=== PATIENT | female | born 1995 | race Caucasian/White ===

== ENCOUNTER 2017-06-19 08:49 | Emergency (ER) | payer BC, OTHER ==
[~2017-06-19] VITALS: Ht 165.1 cm; Wt 68.0 kg
[~2017-06-19 08:49] MED LIST: CEPH-460 PO; CEPH500C3 PO; DIFL150T PO; PYRI200T4 PO; Z.0.BCPILL PO
[2017-06-19 08:53] VITALS: BP 143/83; PULSE 76; RESP 19; TEMP 98.8; O2SAT 98
[2017-06-19] MEDS ORDERED: ONDANSETRON HCL 4 MG/2 ML VIAL IV PUSH ONE ×2 (09:30→10:30)
[2017-06-19 10:03] LABS: AUTOMATED NEUTROPHIL # 6.4 TH/MM3 (1.8-7.7); BASOPHIL # 0.1 TH/MM3 (0-0.2); BASOPHIL % 0.6 % (0.0-2.0); EOSINOPHIL # 0.3 TH/MM3 (0-0.4); EOSINOPHIL % 3.3 % (0.0-4.0); HEMATOCRIT 38.6 % (35.0-46.0); HEMOGLOBIN 13.1 GM/DL (11.6-15.3); LYMPH % 29.3 % (9.0-44.0); MEAN CELL VOLUME 81.4 FL (80.0-100.0); MEAN CORPUSCULAR HEMOGLOBIN 27.5 PG (27.0-34.0); MEAN CORPUSCULAR HGB CONC 33.8 % (32.0-36.0); MEAN PLATELET VOLUME 7.6 FL (7.0-11.0); MONO % 4.6 % (0.0-8.0); MONOCYTE # 0.5 TH/MM3 (0-0.9); NEUT % 62.2 % (16.0-70.0); PLATELET COUNT 291 TH/MM3 (150-450); RED BLOOD COUNT 4.74 MIL/MM3 (4.00-5.30); RED CELL DISTRIBUTION WIDTH 14.2 % (11.6-17.2); WHITE BLOOD COUNT 10.3 TH/MM3 (4.0-11.0)
[2017-06-19 10:13] LABS: BACTERIA, URINE RARE /hpf; BILIRUBIN, URINE NEG (NEG); BLOOD, URINE LARGE (NEG); GLUCOSE,URINE NEG (NEG); KETONE, URINE NEG (NEG); MUCUS URINE FEW /lpf (OCC); NITRITE,URINE NEG (NEG); PH, URINE 5.5 (5.0-8.5); SQUAMOUS EPITHELIAL CELL URINE 1 /hpf (0-5); URINE COLOR YELLOW (YELLW/STRAW); URINE LEUKOCYTE ESTERASE NEG (NEG)
[2017-06-19 10:24] LABS: BICARBONATE 23.2 MEQ/L (21.0-32.0); CALCIUM 8.8 MG/DL (8.5-10.1); CREATININE 0.85 MG/DL (0.50-1.00)
[2017-06-19] MEDS ORDERED: SODIUM CHLOR 0.9% 1000 ML INJ 1,000 ML IV ONE (10:30)
[2017-06-19] MEDS ORDERED: MORPHINE SULFATE 4 MG/ML INJ IV PUSH ONE (10:30)
--- NOTE | 2017-06-19 10:54 | RADRPT ---
EXAM DATE/TIME: 06/19/2017 10:39 [place] COMPARISON: No previous studies available for comparison. INDICATIONS : Right flank pain, vomiting ORAL CONTRAST: No oral contrast ingested. RADIATION DOSE: 5.80 CTDIvol (mGy) MEDICAL HISTORY : Asthma SURGICAL HISTORY : None. ENCOUNTER: Initial ACUITY: 1 day PAIN SCALE: 4/10 LOCATION: Right flank TECHNIQUE: Volumetric scanning of the abdomen and pelvis was performed. Using automated exposure control and ad justment of the mA and/or kV according to patient size, radiation dose was kept as low as reasonably achievable to obtain optimal diagnostic quality images. DICOM format image data is available electro nically for review and comparison. FINDINGS: Lung bases are clear. Osseous structures are intact. An nuclear fusion. Liver, gallbladder, spleen, a drenals are unremarkable. There is a 2 mm nonobstructing left upper pole renal calculus. No hydroneph rosis. There is slight prominence of the right ureter. The urinary bladder, uterus and ovaries are no rmal in appearance. There are no signs of bowel obstruction. There is a calcified appendicolith measu ring 5 mm within the appendix. There are no associated inflammatory changes. The examination demonstr ates a 3 mm calculus at the right distal ureter just proximal to the ureterovesical junction. CONCLUSION: Right distal ureteral calculus is noted in nonobstructing left upper pole renal calculus. Calcified a ppendicolith. Jayjay Walls MD on June 19, 2017 at 10:50 Board Certified Radiologist. This report was verified electronically.
[2017-06-19] MEDS ORDERED: NORE1CHW8 PO (11:11)
[2017-06-19] MEDS ORDERED: VALG1TAB PO (11:11)
[2017-06-19] MEDS ORDERED: KETOROLAC TROMETHAMINE 30 MG/ML (IVP) VIAL IV PUSH ONE (11:30)
--- NOTE | 2017-06-19 11:45 | PD ---
HPI Chief Complaint: Flank/Kidney Pain Time Seen by Provider: 11:11 Travel History International Travel<30 days: No Contact w/Intl Traveler<30days: No Traveled to known affect area: No History of Present Illness HPI 22-year-old female presents to the emergency room for evaluation of right flank pain and pelvic pain that started abruptly at 5:00 this morning. Pain woke her from her sleep. It is severe, sharp, and made her scream out. Pain is not worsened with any range of motion. Patient states the associated pelvic pain felt kind of like menstrual cramping so she took a Midol which mildly relieved her symptoms. She has had 4 episodes of nonbloody, nonbilious emesis. She denies any abnormal vaginal discharge. She has history of urinary tract infections and states this does not feel the same. She denies dysuria, urgency , frequency, or hematuria. No fever, chills. She denies history of kidney stones. Denies possibility of . No chronic medical conditions or daily medications. PFSH Past Medical History Diminished Hearing: No Medical other: Yes (herpes ) Respiratory: Yes (exercise induced asthma) Immunizations Current: Yes ?: Not LMP: 06/2017 Past Surgical History Surgical History: No Previous Surgery Social History Alcohol Use: No Tobacco Use: No Substance Use: No Allergies-Medications (Allergen,Severity, Reaction): Coded Allergies: No Known Allergies (Unverified Adverse Reaction, Unknown, 06/19/17) Reported Meds & Prescriptions Reported Meds & Active Scripts Active Reported Norethindrone-Ethinyl Estradiol 0.4-35 Mg-Mcg Chew 1 Tab PO DAILY Valganciclovir 450 Mg Tab 1 Gm PO DAILY Review of Systems Except as stated in HPI: all other systems reviewed are Neg Physical Exam Narrative GENERAL: Well-nourished, well-developed female no acute distress. Afebrile. Ambulatory. SKIN: Focused skin assessment warm/dry. HEAD: Normocephalic. EYES: No scleral icterus. No injection or drainage. NECK: Supple, trachea midline. No JVD or lymphadenopathy. CARDIOVASCULAR: Regular rate and rhythm without murmurs, gallops, or rubs. RESPIRATORY: Breath sounds equal bilaterally. No accessory muscle use. GASTROINTESTINAL: Abdomen soft, nondistended. Mild pelvic tenderness. BACK: Nontender without obvious deformity. Very mild right-sided CVA tenderness. Data Data Last Documented VS Vital Signs Date Time Temp Pulse Resp B/P (MAP) Pulse Ox O2 Delivery O2 Flow Rate FiO2 06/19/17 08:53 98.8 76 19 143/83 (103) 98 Orders Orders Urinalysis - C+S If Indicated (06/19/17 09:19) Ed Urine Pregnancytest Poc (06/19/17 09:19) Complete Blood Count With Diff (06/19/17 09:19) Basic Metabolic Panel (Bmp) (06/19/17 09:19) Ondansetron Inj (Zofran Inj) (06/19/17 09:30) Ct Abd/Pel W/O Iv Contrast (06/19/17 10:22) ^ Saline Lock (06/19/17 10:22) Sodium Chlor 0.9% 1000 Ml Inj (Ns 1000 M (06/19/17 10:30) Ondansetron Inj (Zofran Inj) (06/19/17 10:30) Morphine Inj (Morphine Inj) (06/19/17 10:30) Ketorolac Inj (Toradol Inj) (06/19/17 11:30) Labs Laboratory Tests Test 06/19/17 09:30 3 09:40 White Blood Count 10.3 TH/MM3 Red Blood Count 4.74 MIL/MM3 Hemoglobin 13.1 GM/DL Hematocrit 38.6 % Mean Corpuscular Volume 81.4 FL Mean Corpuscular Hemoglobin 27.5 PG Mean Corpuscular Hemoglobin Concent 33.8 % Red Cell Distribution Width 14.2 % Platelet Count 291 TH/MM3 Mean Platelet Volume 7.6 FL Neutrophils (%) (Auto) 62.2 % Lymphocytes (%) (Auto) 29.3 % Monocytes (%) (Auto) 4.6 % Eosinophils (%) (Auto) 3.3 % Basophils (%) (Auto) 0.6 % Neutrophils # (Auto) 6.4 TH/MM3 Lymphocytes # (Auto) 3.0 TH/MM3 Monocytes # (Auto) 0.5 TH/MM3 Eosinophils # (Auto) 0.3 TH/MM3 Basophils # (Auto) 0.1 TH/MM3 CBC Comment DIFF FINAL Differential Comment Blood Urea Nitrogen 8 MG/DL Creatinine 0.85 MG/DL Random Glucose 125 MG/DL Calcium Level 8.8 MG/DL Sodium Level 141 MEQ/L Potassium Level 3.5 MEQ/L Chloride Level 108 MEQ/L Carbon Dioxide Level 23.2 MEQ/L Anion Gap 10 MEQ/L Estimat Glomerular Filtration Rate 84 ML/MIN Urine Color YELLOW Urine Turbidity CLEAR Urine pH 5.5 Urine Specific [place] 1.020 Urine Protein NEG mg/dL Urine Glucose (UA) NEG mg/dL Urine Ketones NEG mg/dL Urine Occult Blood LARGE Urine Nitrite NEG Urine Bilirubin NEG Urine Urobilinogen LESS THAN 2.0 MG/DL Urine Leukocyte Esterase NEG Urine RBC 55 /hpf Urine WBC 1 /hpf Urine Squamous Epithelial Cells 1 /hpf Urine Bacteria RARE /hpf Urine Mucus FEW /lpf Microscopic Urinalysis Comment CULT NOT INDICATED MDM Medical Decision Making Medical Screen Exam Complete: Yes Emergency Medical Condition: Yes Medical Record Reviewed: Yes Differential Diagnosis Nephrolithiasis, UTI, pyelonephritis, muscle strain Narrative Course 22-year-old female presents to the emergency room for evaluation of right flank pain and pelvic pain that started abruptly at 5:00 this morning. Pain woke her from sleep. She has associated nausea and vomiting. Patient is afebrile and well-appearing in the emergency room. Vital signs stable. There is mild right- sided CVA tenderness. CBC and BMP are unremarkable. UA shows occult blood. CT is positive for 2 stones; one is 0.5 cm, the other is 0.32 cm. Patient was given morphine, Zofran, Toradol, and 1 L normal saline with significant improvement in symptoms. She was told to strain her urine and discharged with prescriptions for tramadol and Zofran. Told to follow-up with the primary care physician or return for worsening symptoms. She understands and agrees to plan. Diagnosis Primary Impression: Kidney stone on right side Referrals: Primary Care Physician Additional Instructions: Rest and drink plenty of fluids. Tramadol and Zofran as directed, as needed for pain and nausea. Do not take medication more than directed. Do not drink alcohol or drive while taking this medication Take ibuprofen with food as directed, as needed for pain. Follow-up with a primary care physician. Return to the emergency room for worsening symptoms. Disposition: 01 DISCHARGE HOME Condition: Stable Janeth Blas Jun 19, 2017 11:45
[2017-06-19] MEDS ORDERED: TRAM50TA PO (11:46)
[2017-06-19] MEDS ORDERED: ZOFR4TAB3 SL (11:46)
--- NOTE | 2017-06-19 11:53 | PD ---
Physical Exam Date Seen by Provider: Jun 19, 2017 Narrative This patient presents with the acute onset of right flank pain. It started this morning. She states that she had some suprapubic discomfort yesterday which was consistent with menstrual cramps. However, her last menstrual cycle was just a couple weeks ago. She states that she did take some Midol for the discomfort and the Midol did help. However, she awakened this morning with the right flank pain. Today, she had nausea and vomiting as well. Data Data Last Documented VS Vital Signs Date Time Temp Pulse Resp B/P (MAP) Pulse Ox O2 Delivery O2 Flow Rate FiO2 06/19/17 08:53 98.8 76 19 143/83 (103) 98 Orders Orders Urinalysis - C+S If Indicated (06/19/17 09:19) Ed Urine Pregnancytest Poc (06/19/17 09:19) Complete Blood Count With Diff (06/19/17 09:19) Basic Metabolic Panel (Bmp) (06/19/17 09:19) Ondansetron Inj (Zofran Inj) (06/19/17 09:30) Ct Abd/Pel W/O Iv Contrast (06/19/17 10:22) ^ Saline Lock (06/19/17 10:22) Sodium Chlor 0.9% 1000 Ml Inj (Ns 1000 M (06/19/17 10:30) Ondansetron Inj (Zofran Inj) (06/19/17 10:30) Morphine Inj (Morphine Inj) (06/19/17 10:30) Ketorolac Inj (Toradol Inj) (06/19/17 11:30) Labs Laboratory Tests Test 06/19/17 09:30 06/19/17 09:40 White Blood Count 10.3 TH/MM3 Red Blood Count 4.74 MIL/MM3 Hemoglobin 13.1 GM/DL Hematocrit 38.6 % Mean Corpuscular Volume 81.4 FL Mean Corpuscular Hemoglobin 27.5 PG Mean Corpuscular Hemoglobin Concent 33.8 % Red Cell Distribution Width 14.2 % Platelet Count 291 TH/MM3 Mean Platelet Volume 7.6 FL Neutrophils (%) (Auto) 62.2 % Lymphocytes (%) (Auto) 29.3 % Monocytes (%) (Auto) 4.6 % Eosinophils (%) (Auto) 3.3 % Basophils (%) (Auto) 0.6 % Neutrophils # (Auto) 6.4 TH/MM3 Lymphocytes # (Auto) 3.0 TH/MM3 Monocytes # (Auto) 0.5 TH/MM3 Eosinophils # (Auto) 0.3 TH/MM3 Basophils # (Auto) 0.1 TH/MM3 CBC Comment DIFF FINAL Differential Comment Blood Urea Nitrogen 8 MG/DL Creatinine 0.85 MG/DL Random Glucose 125 MG/DL Calcium Level 8.8 MG/DL Sodium Level 141 MEQ/L Potassium Level 3.5 MEQ/L Chloride Level 108 MEQ/L Carbon Dioxide Level 23.2 MEQ/L Anion Gap 10 MEQ/L Estimat Glomerular Filtration Rate 84 ML/MIN Urine Color YELLOW Urine Turbidity CLEAR Urine pH 5.5 Urine Specific [place] 1.020 Urine Protein NEG mg/dL Urine Glucose (UA) NEG mg/dL Urine Ketones NEG mg/dL Urine Occult Blood LARGE Urine Nitrite NEG Urine Bilirubin NEG Urine Urobilinogen LESS THAN 2.0 MG/DL Urine Leukocyte Esterase NEG Urine RBC 55 /hpf Urine WBC 1 /hpf Urine Squamous Epithelial Cells 1 /hpf Urine Bacteria RARE /hpf Urine Mucus FEW /lpf Microscopic Urinalysis Comment CULT NOT INDICATED MDM Supervised Visit with DANIELLE: Yes Narrative Course I, Dr. Lewis, have reviewed the advance practice practitioner's documentation and am in agreement, met with the patient face to face, made the diagnosis, and the medical decision making was done by me. *My assessment and Findings: The patient currently looks very comfortable. She had several questions regarding her diagnosis. These were answered. Please see Janeth Blas PA-C's note for results of laboratory and radiographic evaluation, ED course, final diagnosis and disposition Diagnosis Primary Impression: Kidney stone on right side Referrals: Primary Care Physician Additional Instruction: Rest and drink plenty of fluids. Tramadol and Zofran as directed, as needed for pain and nausea. Do not take medication more than directed. Do not drink alcohol or drive while taking this medication Take ibuprofen with food as directed, as needed for pain. Follow-up with a primary care physician. Return to the emergency room for worsening symptoms. Scripts Tramadol (Tramadol) 50 Mg Tab 50 MG PO Q8H Y for PAIN, #12 TAB 0 Refills Prov: Kimi Lewis MD 06/19/17 Ondansetron Odt (Zofran Odt) 4 Mg Tab 4 MG SL Q8HR Y for Nausea/Vomiting, #12 TAB 0 Refills Prov: Kimi Lewis MD 06/19/17 Disposition: 01 DISCHARGE HOME Condition: Stable Kimi Lewis MD Jun 19, 2017 11:52
== END 2017-06-19 12:37 | disposition home or self-care (01) ==
LOC: NEPD 08:49
DX: N20.0 Calculus of kidney (principal); R11.2 Nausea with vomiting, unspecified
CPT/HCPCS: 74176; 80048; 81001; 84703; 85025; 96374; 96375; 96376; 99284; J1885; J2270; J2405; J7030